=== PATIENT | male | born 1950 | race Caucasian/White ===

== ENCOUNTER → 2020-03-06 | Outpatient (CLI) | payer MEDICARE, OTHER ==
[~2020-03-06] MED LIST: AMBIEN 5 MG TABL5 M1 PO; ASPIRIN325 PO; DICLOFENAC POTA50 MG PO; FLOMAX0.4 MG PO; LISINOPRIL5 MG PO; PRILOSEC40 MG PO; PROSCAR 5MG TABL5 MG PO; SORINE 80 MG TA80 M1 PO
[2020-03-06 09:27] LABS: ABSOLUTE BASOPHILS 0.1 thou/uL (0.0-0.2); ABSOLUTE EOSINOPHILS 0.1 thou/uL (0.0-0.7); ABSOLUTE LYMPHOCYTES 1.5 thou/uL (0.8-5.3); ABSOLUTE MONOCYTES 0.6 thou/uL (0.0-1.2); ABSOLUTE NEUTROPHILS 8.5 thou/uL (1.6-8.1); BASOPHILS 0.9 %; EOSINOPHILS 1.2 %; HEMATOCRIT 43.4 % (42.0-52.0); HEMOGLOBIN 14.7 gm/dL (14.0-18.0); LYMPHOCYTES 13.9 %; MCH 29.9 pg (26.0-34.0); MCHC 33.8 g/dL (28.0-37.0); MCV 88.5 fL (80.0-100.0); MONOCYTES 5.5 %; MPV 8.6 fl. (7.2-11.1); NUCLEATED RBCS 0 /100WBC; PLATELET COUNT* 248 thou/uL (150-400); POLYS 78.5 %; RDW-CV 14.3 % (10.5-14.5); WBC 10.8 thou/uL (4.0-11.0)
[2020-03-06 09:42] LABS: CALCIUM 10.1 mg/dL (8.5-10.1); CREATININE 1.3 mg/dL (0.6-1.3); POTASSIUM 4.5 mmol/L (3.5-5.1)
[2020-03-06 09:47] LABS: ALBUMIN 3.7 g/dL (3.4-5.0); TOTAL BILIRUBIN 0.3 mg/dL (<0.1-1.0); TOTAL PROTEIN 6.8 g/dL (6.4-8.2)
== END ==
LOC: M.LAB 02-22 14:47
PROVIDERS: ATTEND Internal Medicine Cardiovascular Disease
DX: J43.9 Emphysema, unspecified (principal); I48.0 Paroxysmal atrial fibrillation

== ENCOUNTER → 2020-03-07 | Outpatient (CLI) | payer MEDICARE, OTHER ==
[~2020-03-07] MED LIST changes: +ELIQUIS5 MG PO; +ENTRESTO 49 MG1 EACH PO
[2020-03-07 09:33] VITALS: BP 119/55
[2020-03-07 10:05] VITALS: BP 105/64
[2020-03-07 10:10] VITALS: BP 103/63
[2020-03-07 10:15] VITALS: BP 107/61
[2020-03-07 10:20] VITALS: BP 92/53
[2020-03-07 10:25] VITALS: BP 91/51
--- NOTE | 2020-03-07 14:09 | TEE ---
[place] [address] TRANSESOPHAGEAL ECHOCARDIOGRAM Name: JOLIE WILDE Room: [facility]#: [id number] Admission: 03/07/20 [facility] Discharge: Date of : 48 Date of Service: 03/07/20 1409 Report #: [id number] THIS REPORT FOR: cc: Gregorio Mckeon MD, David MD Liston, Michael J. MD [facility] ~ APPROVED REPORT Study performed: 03/07/2020 09:32:40 EXAM: Transesophageal Echocardiogram Patient Location: Out-Patient Status: routine BSA: 1.90 HR: 60 bpm BP: 119/55 mmHg Rhythm: NSR Other Information Study Quality: Good Indications pre-ablation Echo Enhancing Agent Indication: Rule out Shunt Agent(s) / Amount(s) Used: Agitated Saline 10 cc Procedure After obtaining informed consent, patient underwent transesophageal echo in the [facility] [employer]. Type of Sedation : Conscious Sedation Sedation was administered by Diana Choe RN. Sedation start time: 1000 Case end Time: 1018 Sedation was achieved intravenously with: Versed (4) Fentanyl (100) Transesophageal probe was inserted and advanced into esophagus without difficulty by Patric Patel MD, FACC. Echo enhancement indication: R/O Septal defect. Echo enhancement agent administered: Agitated Saline The DEXTER was performed without complications. Throughout the procedure, the blood pressure, pulse oximetry, cardiac rhythm, and rate were monitored. The patient tolerated the procedure without [place] [address] TRANSESOPHAGEAL ECHOCARDIOGRAM Name: JOLIE WILDE Room: [facility] Tito#: [id number] Admission: 03/07/20 [facility]end [facility]: [facility] Discharge: Date of : 48 Date of Service: 03/07/20 1409 Report #: [id number] from conscious sedation was uneventful and vital signs were stable. Left Ventricle The left ventricle is normal size. There is normal LV segmental wall motion. There is normal left ventricular wall thickness. Left ventricular systolic function is normal. LVEF is 55-60%. Right Ventricle The right ventricle is normal size. The right ventricular systolic function is normal. Atria No thrombus is visualized in the left atrium or appendage. Small PFO is noted. The right atrium size is normal. Aortic Valve The aortic valve is normal in structure. Trace aortic regurgitation. There is no aortic valvular stenosis. Mitral Valve The mitral valve is normal in structure. There is no mitral valve regurgitation noted. No evidence of mitral valve stenosis. Tricuspid Valve Tricuspid valve is not well visualized. Pulmonic Valve Pulmonic valve is not well visualized. Great Vessels The aortic root is normal in size. Pericardium There is no pericardial effusion. <Conclusion> The left ventricle is normal size. There is normal left ventricular wall thickness. Left ventricular systolic function is normal. LVEF is 55-60%. [place] [address] TRANSESOPHAGEAL ECHOCARDIOGRAM Name: JOLIE WILDE Room: [facility]#: [id number] Admission: 03/07/20 Attend Phys: Massimo Cole Discharge: Date of : 48 Date of Service: 03/07/201408 Report #: [id number] Small PFO is noted. No thrombus is visualized in the left atrium or appendage. <ELECTRONICALLY SIGNED> By: Patric Patel MD, [facility] 03/07/201408 08 08 Patric Patel MD, FACC /INF
== END | disposition home or self-care (01) ==
LOC: M.CL 07:58
PROVIDERS: ATTEND Internal Medicine Cardiovascular Disease
DX: I48.91 Unspecified atrial fibrillation (principal); I35.1 Nonrheumatic aortic (valve) insufficiency; Z98.890 Other specified postprocedural states; Z79.899 Other long term (current) drug therapy; Z79.01 Long term (current) use of anticoagulants; Z88.0 Allergy status to penicillin